=== PATIENT | female | born 1955 | race Two or more races ===

== ENCOUNTER 2020-09-07 12:30 | Inpatient (IN) | payer OTHER ==
[~2020-09-07] VITALS: Ht 160 cm; Wt 55.8 kg
[2020-09-12] MEDS ORDERED: TOPROL XL25 M1 PO (13:46)
[2020-09-12] MEDS ORDERED: CRESTOR5 MG PO (13:46)
[2020-09-14] MEDS ORDERED: METOPROLOL TART50 MG (09:51)
[2020-09-14] MEDS ORDERED: FUSION PLUS CA1 EACH (09:51)
[2020-09-14] MEDS ORDERED: MONTELUKAST SOD10 MG (09:51)
== END 2020-09-16 08:57 | disposition home or self-care (01) | DRG 376 ==
LOC: EDSEX 12:30 → SURG 09-14 06:35 → O/R 09-14 06:35 → SURH 09-14 12:30 → SURG 09-14 13:04 → SURH 09-14 16:45 → SURG 09-16 08:57
PROVIDERS: ADMIT Colon & Rectal Surgery; ATTEND Colon & Rectal Surgery
PROC: 0DBP8ZX Excision of Rectum, Via Natural or Artificial Opening Endoscopic, Diagnostic (ICD-10-PCS; principal; 2020-09-14 16:45)
DX: C20 Malignant neoplasm of rectum (principal); I11.9 Hypertensive heart disease without heart failure

== ENCOUNTER 2021-02-24 06:39 | Day surgery (SDC) | payer OTHER ==
[~2021-02-24 06:39] MED LIST: CRESTOR5 MG PO; FUSION PLUS CA1 EACH; METOPROLOL TART50 MG; MONTELUKAST SOD10 MG; TOPROL XL25 M1 PO
== END 2021-02-24 10:40 | disposition home or self-care (01) ==
LOC: AMB-ENDOS 06:39
PROVIDERS: ATTEND Colon & Rectal Surgery
DX: C20 Malignant neoplasm of rectum (principal); K64.1 Second degree hemorrhoids

== ENCOUNTER 2021-03-27 12:45 | Inpatient (IN) | payer OTHER ==
[~2021-03-27] VITALS: Ht 160 cm; Wt 55.8 kg
[2021-03-29] MEDS ORDERED: FUSION PLUS CA1 EACH (13:10)
== END 2021-03-31 13:42 | disposition home or self-care (01) | DRG 375 ==
LOC: ADM 12:45 → EDSTATUS 12:45 → O/R 03-29 08:00 → SURG 03-29 08:00 → SURH 03-29 11:15 → SURG 03-29 19:19
PROVIDERS: ADMIT Colon & Rectal Surgery; ATTEND Colon & Rectal Surgery
PROC: 0DBP8ZZ Excision of Rectum, Via Natural or Artificial Opening Endoscopic (ICD-10-PCS; principal; 2021-03-29 11:15)
DX: C20 Malignant neoplasm of rectum (principal); K92.1 Melena; I11.9 Hypertensive heart disease without heart failure; Z85.048 Personal history of other malignant neoplasm of rectum, rectosigmoid junction, and anus